=== PATIENT | female | born 1950 | race Caucasian/White ===

== ENCOUNTER → 2024-08-31 | Outpatient (CLI) | payer MEDICARE, OTHER, SELFPAY ==
[2024-08-31 10:52] LABS: Basophils % (Auto) 1 % (0-2.5); Eosinophils # (Auto) 0.1 Thou/mm3 (0.0-0.5); Eosinophils % (Auto) 2 % (0-10); Hematocrit 44.9 % (36.0-46.0); Hemoglobin 15.4 g/dL (12.0-16.0); Immature Granulocytes % (Auto) 0 % (0-0); Immature Granulocytes Auto 0.01 Thou/mm3 (0.00-0.00); Lymphocytes # (Auto) 1.5 Thou/mm3 (1.0-4.8); Lymphocytes % (Auto) 34 % (10-50); Mean Corpuscular HGB Conc 34.3 g/dl (31.0-37.0); Mean Corpuscular Volume 93 fL (80-100); Monocytes # (Auto) 0.5 Thou/mm3 (0.0-0.8); Monocytes % (Auto) 11 % (0-12); Neutrophils # (Auto) 2.2 Thou/mm3 (1.8-7.7); Neutrophils % (Auto) 52 % (37-80); Nucleated Red Blood Cell % 0 /100 WBC (0); Platelet Count 218 Thou/mm3 (140-440); RDW Standard Deviation 43.6 fL (36.4-46.3); Red Blood Count 4.81 Miln/mm3 (4.00-5.20); White Blood Count 4.3 Thou/mm3 (3.6-11.0)
[2024-08-31 11:32] LABS: Alanine Aminotransferase 22 U/L (10-49); Albumin, Serum 4.1 gm/dL (3.4-4.8); Albumin/Globulin Ratio 1.8 (1.2-2.2); Alkaline Phosphatase 66 U/L (46-116); Anion Gap 8 (7-16); Aspartate Amino Transferase 22 U/L (0-34); BUN/Creatinine Ratio 25 Ratio (12-20); Bilirubin,Total 0.4 mg/dL (0.3-1.2); Blood Urea Nitrogen 20 mg/dL (9-23); Carbon Dioxide 27.2 mMol/L (20.0-31.0); Cardiac Risk Estimate 4.9 RATIO (3.7-5.6); Chloride 108 mMol/L (98-107); Cholesterol 243 mg/dL (132-200); Creatinine (Component) 0.8 mg/dL (0.6-1.3); Free T4 (Free Thyroxine) 1.28 ng/dL (0.89-1.76); Globulin 2.3 gm/dL (2.3-3.5); Glucose 92 mg/dL (74-106); HDL Cholesterol 50 mg/dL (40-60); LDL Cholesterol,Calculated 170 mg/dL (0-130); Osmolality,Calculated 287 (275-295); Potassium 4.3 mMol/L (3.4-5.1); Sodium 143 mMol/L (136-145); Thyroid Stimulating Hormone 3.51 uIU/mL (0.55-4.78); Total Protein 6.4 gm/dL (5.7-8.2); Triglycerides 113 mg/dL (30-150); eGFR > 60 See Note
[2024-08-31 11:58] LABS: Glucose Estimated Average 97 mg/dL (80-131)
[2024-08-31 14:52] LABS: Cocci Serology, IgM Negative (Negative)
[2024-09-01 14:29] LABS: Cocci Serology, IgG Negative (Negative)
== END | disposition home or self-care (01) ==
PROVIDERS: PCP Physician Assistant; Referring Provider Physician Assistant; Visit Provider Physician Assistant
DX: E66.3 Overweight (principal); R73.9 Hyperglycemia, unspecified; Z83.3 Family history of diabetes mellitus; R53.81 Other malaise; R53.83 Other fatigue; Z86.19 Personal history of other infectious and parasitic diseases; Z68.27 Body mass index [BMI] 27.0-27.9, adult
CPT/HCPCS: 36415; 80053; 80061; 83036; 84439; 84443; 85025; 86331; 86635

== ENCOUNTER → 2024-09-01 | Outpatient (CLI) | payer MEDICARE, OTHER, SELFPAY ==
[2024-09-01 14:11] LABS: OBS Card Expiration Date 2026/09; OBS Card Lot # 23001; OBS Performed By LAB; OBS QC OK? Yes
[2024-09-01 16:50] LABS: OBS Developer Lot # 23003; Occult Blood, Stool Negative (Negative); Occult Blood, Stool #2 Negative (Negative); Occult Blood, Stool #3 Negative (Negative)
== END | disposition home or self-care (01) ==
LOC: SLDO 14:07
PROVIDERS: PCP Physician Assistant; Referring Provider Physician Assistant; Visit Provider Physician Assistant
DX: Z12.11 Encounter for screening for malignant neoplasm of colon (principal)
CPT/HCPCS: 82270

== ENCOUNTER 2025-03-02 12:34 | Inpatient (IN) | payer MEDICARE, OTHER, SELFPAY ==
[2025-03-02] VITALS (21 sets, daily range): BP systolic 105–134; BP diastolic 46–78; PULSE 69–88; RESP 12–87; TEMP 36.6–36.7; O2SAT 95–100; BMI 28.0
--- NOTE | 2025-03-02 12:36 | EKG_ITS ---
[facility], [place] Test Date: 2025-03-02 Pat Name: JENNY WRIGHT Department: Room: - Gender: Female Equipment Tester: : 1950 Requested By: Rubio Kumar (TYRON) Order Number: [id number] Reading MD: Rubio Kumar (TIRE INSTALLER) Measurements Intervals [place] Rate: 82 P: 55 CO: 154 QRS: 21 QRSD: 129 T: 98 QT: 391 QTc: 459 Interpretive Statements SINUS RHYTHM LEFT BUNDLE BRANCH BLOCK [120+ ms QRS DURATION, 80+ ms Q/S IN V1/V2, 85+ ms R IN I/aVL/V5/V6] No previous ECG available for comparison /store/S0/[id number].pdf
--- NOTE | 2025-03-02 13:00 | XR_ITS ---
Examination: PA lateral chest 2 views TECHNIQUE: Upright PA lateral chest 2 views Date and time: March 02, 2025 1327 hours Comparison April 06, 2014 INDICATIONS: Chest pain today FINDINGS: Normal heart size. No lobar pneumonia or pulmonary edema Prominent osteopenia IMPRESSION: No pneumonia or pulmonary edema
--- NOTE | 2025-03-02 13:01 | PD.EDRME ---
Rapid Medical Screening Exam RME Arrival date/time: 03/02/25 12:34 74-year-old female presents to the emergency department today for complaint of a 2-day history of chest pain and shortness of breath Chief Complaint: Chest Pain Vital signs: Vital Signs Temperature 98.0 F 03/02/25 12:45 Pulse Rate 88 03/02/25 12:45 Respiratory Rate 87 H 03/02/25 12:45 Blood Pressure 133/74 H 03/02/25 12:45 Pulse Oximetry (%) 96 03/02/25 12:45 Oxygen Delivery Method Room Air 03/02/25 12:45
[2025-03-02 13:45] LABS: Basophils # (Auto) 0.1 Thou/mm3 (0.0-0.2); Basophils % (Auto) 1 % (0-2.5); Eosinophils # (Auto) 0.3 Thou/mm3 (0.0-0.5); Eosinophils % (Auto) 4 % (0-10); Hematocrit 38.3 % (36.0-46.0); Hemoglobin 12.8 g/dL (12.0-16.0); Immature Granulocytes % (Auto) 0 % (0-0); Immature Granulocytes Auto 0.02 Thou/mm3 (0.00-0.00); Lymphocytes % (Auto) 27 % (10-50); Mean Corpuscular HGB Conc 33.4 g/dl (31.0-37.0); Mean Corpuscular Hemoglobin 31.5 pg (25.0-35.0); Mean Corpuscular Volume 94 fL (80-100); Monocytes # (Auto) 0.5 Thou/mm3 (0.0-0.8); Monocytes % (Auto) 6 % (0-12); Neutrophils # (Auto) 4.6 Thou/mm3 (1.8-7.7); Neutrophils % (Auto) 61 % (37-80); Nucleated Red Blood Cell % 0 /100 WBC (0); Platelet Count 251 Thou/mm3 (140-440); RDW Standard Deviation 44.2 fL (36.4-46.3); Red Blood Count 4.06 Miln/mm3 (4.00-5.20); White Blood Count 7.4 Thou/mm3 (3.6-11.0)
[2025-03-02 14:05] LABS: B-Type Natriuretic Peptide 182 pg/mL (0-100)
[2025-03-02 14:08] LABS: Alanine Aminotransferase 31 U/L (10-49); Albumin, Serum 3.6 gm/dL (3.4-4.8); Albumin/Globulin Ratio 1.6 (1.2-2.2); Alkaline Phosphatase 54 U/L (46-116); Anion Gap 14 (7-16); Aspartate Amino Transferase 23 U/L (0-34); BUN/Creatinine Ratio 19 Ratio (12-20); Bilirubin,Total 0.4 mg/dL (0.3-1.2); Blood Urea Nitrogen 17 mg/dL (9-23); Calcium 7.9 mg/dL (8.3-10.6); Calcium (Corrected) 8.2 mg/dL (8.5-10.1); Carbon Dioxide 22.5 mMol/L (20.0-31.0); Chloride 108 mMol/L (98-107); Creatinine (Component) 0.9 mg/dL (0.6-1.3); Globulin 2.3 gm/dL (2.3-3.5); Glucose 130 mg/dL (74-106); Osmolality,Calculated 290 (275-295); Sodium 144 mMol/L (136-145); Total Protein 5.9 gm/dL (5.7-8.2); Troponin I 0.023 ng/mL (0.0-0.045); eGFR > 60 See Note
--- NOTE | 2025-03-02 16:30 | XR_ITS ---
Examination: CTA chest with intravenous contrast 2-D reconstructions 3-D reconstructions, vascular Date and time of exam: March 02, 2025 1752 hours INDICATIONS: Onset chest pain shortness of breath beginning 4 days ago, clinical diagnosis pulmonary emboli CTDI: vol (mGy) 9.02 DLP: (mGycm) 306 Technique: Multiple axial sections of the thorax have been obtained. 3 mm slice thickness, from below the hemidiaphragms to above the apices of the lungs. Mediastinal and lung density settings have been obtained. 2-D sagittal and coronal reconstructions. 3-D angiographic renderings, 3-D volume renderings, 3D post processing, vascular maximum intensity projections obtained. Contrast administered is 100 cc Isovue 370. Low dose protocols were performed. One or more of the following dose reduction techniques were used; automated exposure control, adjustment of the mA and/or KV according to patient size, use of iterative reconstruction technique. Findings: No thoracic aortic aneurysm dilatation or dissection No pulmonary artery emboli Mild enlargement cardiac contour 6 mm pulmonary nodule left upper lobe image 25 4 mm pulmonary nodule right lower lobe image 249 Vascular congestion with mild pulmonary edema at the lung bases Minimal bilateral pleural disease Mild right hilar lymphadenopathy No visualized liver or splenic lesion Gallbladder wall is thickened although the gallbladder is contracted Spleen is not enlarged No pancreatic mass Nodular thickening left adrenal gland IMPRESSION: Negative for pulmonary artery emboli Noncalcified pulmonary nodules as above, recommend 6 month follow-up CT chest without contrast to document stability of these pulmonary nodules Mild CHF Recommend hepatobiliary sonography follow-up to exclude thickening of the gallbladder wall
--- NOTE | 2025-03-02 16:30 | XR_ITS ---
Examination: Duplex scan of the lower extremity, unilateral left Date and time of exam: Hours INDICATIONS: Left calf redness and warmth 5 days after working in the heart Technique: Duplex scan of the extremity veins using B-mode/grayscale imaging and Doppler spectral analysis and color flow Attention is directed to internal echogenicity, compression and augmentation involving these veins, color flow assessment, spectral analysis Findings: Major deep venous structures in the extremity demonstrate normal course and caliber. There is no evidence of deep vein thrombosis. Normal color flow and spectral analysis 4.2 cm popliteal cyst Impression: Negative for DVT..
--- NOTE | 2025-03-02 16:32 | PD.EDSOB ---
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 presents to the emergency room with a chief complaint of shortness of breath, sternal chest tightness, and lower extremity swelling x 4 days Mode of arrival: ambulatory Limitations: no limitations RME / HPI RME / HPI Narrative: 03/02/25 12:34 74-year-old female presents to the emergency department today for complaint of a 2-day history of chest pain and shortness of breath Related Data Allergies Allergy/AdvReac Type Severity Reaction Status Date / Time Penicillins Allergy Verified 03/02/25 12:38 Sulfa (Sulfonamide Allergy Verified 03/02/25 12:38 Antibiotics) Review of Systems Review of Systems Systems Reviewed: All systems reviewed, normal except as documented Constitutional Constitutional: Reports system reviewed and no additional complaints, except as documented, Denies fatigue, Denies fever(s), Denies headache(s) and Denies weakness Eyes Eyes: Reports system reviewed and no additional complaints, except as documented, Denies blurry vision and Denies change in vision ENT Ears, Nose, Mouth, and Throat: Reports system reviewed and no additional complaints, except as documented, Denies otalgia, Denies headache(s), Denies nasal congestion, Denies throat swelling and Denies vertigo Cardiovascular Cardiovascular: Reports system reviewed and no additional complaints, except as documented, Denies chest pain, Reports dyspnea and Reports dyspnea on exertion Respiratory Respiratory: Reports system reviewed and no additional complaints, except as documented, Denies chest congestion, Reports cough, Reports dyspnea, Reports dyspnea on exertion and Denies wheezing Gastrointestinal Gastrointestinal: Reports system reviewed and no additional complaints, except as documented, Denies abdominal pain, Denies cramping, Denies nausea and Denies vomiting Genitourinary Genitourinary: Reports system reviewed and no additional complaints, except as documented Musculoskeletal Musculoskeletal: Reports system reviewed and no additional complaints, except as documented and Denies back pain Integumentary/Breasts Skin/Breast: Reports system reviewed and no additional complaints, except as documented and Denies wounds Neurologic Neurologic: Reports system reviewed and no additional complaints, except as documented, Denies confusion, Denies headache(s), Denies lack of coordination, Denies vertigo and Denies weakness Psychiatric Psychiatric: Reports system reviewed and no additional complaints, except as documented, Denies anxiety, Denies confusion, Denies depression, Denies paranoia, Denies suicidal ideation and Denies tactile hallucinations Endocrine Endocrine: Reports system reviewed and no additional complaints, except as documented and Denies fatigue Hematologic/Lymphatic Hematologic/Lymphatic: Reports system reviewed and no additional complaints, except as documented and Denies lymphadenopathy Allergic/Immunologic Allergic/Immunologic: Reports system reviewed and no additional complaints, except as documented, Denies throat swelling, Denies urticaria and Denies wheezing ED Exam General Limitations: Present no limitations General appearance: Present alert and in no apparent distress Head Head exam: Present atraumatic Eye Eye exam: Present normal appearance, PERRL and EOMI ENT ENT exam: Present normal exam, normal oropharynx and mucous membranes moist Neck Neck exam: Present normal inspection, full ROM and trachea midline Expanded Neck Exam Neck exam focused ED: Present JVD; Absent midline tenderness, paraspinal tenderness, tenderness (other), tracheal deviation or anterior neck swelling Chest Chest inspection: Present normal inspection and symmetric chest wall rise Respiratory Respiratory exam: Present normal lung sounds bilaterally and respiratory distress; Absent wheezes, stridor, accessory muscle use or prolonged expiratory phase Cardiovascular Cardiovascular exam: Present regular rate, normal rhythm, irregular rhythm, normal heart sounds, JVD, +S1 and +S2; Absent bradycardia, tachycardia, systolic murmur, diastolic murmur, rubs, gallop or clicks Abdominal Exam Abdominal exam: Present soft and normal bowel sounds; Absent tenderness Extremities Exam Extremities exam: Present normal inspection and full ROM Expanded Lower Extremity Exam Lower leg exam: Present swelling Ankle exam: Present swelling Back Exam Back exam: Present normal inspection and full ROM Neurological Exam Neurological exam: Present alert, oriented X3 and CN II-XII intact Psychiatric Psychiatric exam: Present normal affect and normal mood Skin Skin exam: Present warm, dry, intact and normal color Course Quality Measures none Orders Category Date Time Status COVID-19 Screening Questionnaire NOW Care 03/02/25 19:[address] Screening NOW Care 03/02/25 16:[address] Screening X1 Care 03/02/25 16:30 Active Decision to Admit X1 Care 03/02/25 19:31 Active EKG (ED ONLY) *Do not use* NOW Care 03/02/25 12:36 Completed Consult to Cardiology Stat Cons 03/02/25 19:[address] angio chest Stat Exams 03/02/25 16:30 Completed EKG (ED Only) Stat Exams 03/02/25 12:36 Draft US venous doppler LE LT Stat Exams 03/02/25 16:30 Completed XR chest 2V Stat Exams 03/02/25 13:00 Completed BNP [B-Type Natriuretic Peptide] Stat Lab 03/02/25 13:11 Completed CBC Stat Lab 03/02/25 13:11 Completed Comprehensive Metabolic Panel Stat Lab 03/02/25 13:11 Completed Mag [Magnesium] Stat Lab 03/02/25 13:11 Completed Troponin I Stat Lab 03/02/25 13:11 Completed Troponin I Stat Lab 03/02/25 16:40 Completed Vital Signs Vital signs: Vital Signs Temperature 98.0 F 03/02/25 12:45 Pulse Rate 88 03/02/25 12:45 Respiratory Rate 87 H 03/02/25 12:45 Blood Pressure 133/74 H 03/02/25 12:45 Pulse Oximetry (%) 96 03/02/25 12:45 Oxygen Delivery Method Room Air 03/02/25 12:45 O2 saturation 96% within normal limits Shortness of Breath / Dyspnea MDM Narrative MDM Narrative:: 74-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 The patient is also short of breath when speaking to her. Her lower extremities have some +1 edema that is more prominent on the left side. The patient also has some JVD. The patient has strong regular rhythm S1 and S2 noted. An ultrasound Doppler of the left lower extremity was completed and was negative for DVT. I spoke to my attending physician Dr Giraldo and recommended to do a CT angiogram. CT angiogram shows some pulmonary nodules as well as some mild CHF. The CHF is new onset. An EKG was completed and showed normal sinus rhythm with some left bundle branch. There was no previous EKG to compare this to. Both troponins were negative. I spoke to Dr. Desir the research manufacturing operator on-call and his recommendation was to admit the patient for new onset CHF and he will see her tomorrow in the morning. Patient was discharged and educated to follow-up with primary care provider in the next 24 to 48 hours and return to the emergency room for any evidence of worsening signs or symptoms Patient data External records reviewed:: [facility] previous records Clinical information provided by:: patient Social determinants that could affect healthcare access:: none Patient has the following chronic illnesses:: CHF How is presenting disease/condition affected by chronic disease/condition?: exacerbated by Evaluation data The following diagnostics were reviewed and interpreted by me:: lab results and radiology exam(s) Lab and/or radiology exams considered but not ordered:: N/A Interpretation Summary: CT angio-Findings: No thoracic aortic aneurysm dilatation or dissection No pulmonary artery emboli Mild enlargement cardiac contour 6 mm pulmonary nodule left upper lobe image 25 4 mm pulmonary nodule right lower lobe image 249 Vascular congestion with mild pulmonary edema at the lung bases Minimal bilateral pleural disease Mild right hilar lymphadenopathy No visualized liver or splenic lesion Gallbladder wall is thickened although the gallbladder is contracted Spleen is not enlarged No pancreatic mass Nodular thickening left adrenal gland IMPRESSION: Negative for pulmonary artery emboli Noncalcified pulmonary nodules as above, recommend 6 month follow-up CT chest without contrast to document stability of these pulmonary nodules Mild CHF Recommend hepatobiliary sonography follow-up to exclude thickening of the gallbladder wall Medications / Prescriptions Medications or Prescriptions considered but not ordered:: No medication given Medication administrations:: No medication given Consultations Consultation(s) initiated? (list below): Yes Consultation #1 (Physician, Specialty, Details): Dr. Desir research manufacturing operator on-call Time: 19:00 Diagnosis Shortness of Breath Differential Diagnosis: congestive heart failure, community acquired pneumonia, asthma with exacerbation and pulmonary embolism Most likely diagnosis given after review of the tests above:: Congestive heart failure Admission Indicated Admission indicated?: indicated Explain why admission is indicated or not indicated:: The patient will be admitted for new onset CHF and will be seen by the research manufacturing operator tomorrow morning Admission Request Was there a request for admission?: Yes Admission Attestation Admission request attestation: Discussed case with [] from Hospitalist service regarding admission. Discussed patients ED course, exam findings, labs, and radiology results. The Hospitalist [agrees,declines] to accept the patient for admission. Disposition Plan Disposition Plan: Admit Discharge Plan Plan Patient Disposition: Admit Acute Care w/in Hospital Discharge Disposition comment: Stable Prescriptions/Referrals Referrals: Althea Wall PA-C [Primary Care Provider] - In 1 week Problem List Clinical Impression: New onset of congestive heart failure, Chest pain, Shortness of breath Patient/Caregiver Discharge Instructions Print Language: Colombian Stand Alone Forms: [facility] Award Info., Patient Portal Info Letter
[2025-03-02 17:05] LABS: Troponin I 0.026 ng/mL (0.0-0.045)
--- NOTE | 2025-03-02 20:12 | ESHP_ITS ---
Documentation for date of: 03/02/25 HPI History of Present Illness Chief complaint: Chest pain History of present illness: 74-year-old female with past medical history of hypoglycemia, hypotension who presents to the ED due to chest pain. Patient states that the onset of symptoms was on (02/25/2025), described as nonradiating chest tightness rated 5 out of 10 that comes and goes. Chest pain does not get better with changes in position. Patient also endorses palpitations with the chest pain that slightly improves when taking deep breaths, as well as shortness of breath with exertion and bilateral leg swelling all the symptoms started on . She also endorsed some cold sweats on Saturday as well as shortness of breath. ED spoke with Cardiology and recommended admission. Initially there was concern for pulmonary embolism however workup including chest CTA came back negative. At this time patient denies any headaches, dizziness, nausea, vomiting, abdominal pain, diarrhea, orthopnea, PND but does endorse mild chest pain. ED course: ED vitals: BP 133/74, HR 88, saturating 96% on room air ED labs: CBC unremarkable, glucose 130, corrected calcium 8.2, BNP 182, troponins negative x 2 PMHx: As above SX Hx: Left knee surgery, ganglion cyst, right ovarian cyst, bilateral meniscal tear Social Hx: Remote THC use when she was 19, denies cigarette use, denies illicit substances Review of Systems Review of Systems Systems Reviewed: All systems reviewed, normal except as documented Narrative Review of Systems: All 12 systems reviewed and found normal unless otherwise stated in the HPI. Exam Vital Signs Temp Pulse Resp BP Pulse Ox O2 Del Method 98.0 F 74 18 105/46 L 99 Room Air 03/02/25 18:34 03/02/25 18:34 03/02/25 18:34 03/02/25 18:34 03/02/25 18:34 03/02/25 18:34 Narrative Exam Physical Exam GENERAL: NAD, AAOx3 HEENT: Moist mucosa. Eyes open, symmetrical, & clear CARDIO: Heart RRR, no obvious murmurs PULM: No noted coughing/dyspnea CTA B/L, no R/W/R GI: Abdomen soft, nondistended, no pain on palpation. BSx4 SKIN/MSK/EXT: Trace bilateral lower extremity edema, no pain on palpation. Pedal pulses present B/L NEURO: AAOx3, no focal neuro deficits, able to move all 4 extremities Results: Labs 03/02/25 13:11 03/02/25 13:11 Labs: Short CBC 03/02/25 Range/Units 13:11 WBC 7.4 (3.6-11.0) Thou/mm3 Hgb 12.8 (12.0-16.0) g/dL Hct 38.3 (36.0-46.0) % Plt Count 251 (140-440) Thou/mm3 BMP 03/02/25 13:11 Sodium 144 Potassium 4.0 Chloride 108 H Carbon Dioxide 22.5 BUN 17 Creatinine 0.9 Glucose 130 H Calcium 7.9 L Cardiac Enzymes 03/02/25 03/02/25 Range/Units 13:11 16:40 Troponin I 0.023 0.026 (0.0-0.045) ng/mL Liver Function 03/02/25 Range/Units 13:11 Total Bilirubin 0.4 (0.3-1.2) mg/dL AST 23 (0-34) U/L ALT 31 (10-49) U/L Alkaline Phosphatase 54 (46-116) U/L Albumin 3.6 (3.4-4.8) gm/dL Quality Measures Quality Measures none Advance care planning discussed with:: patient Medications Home Medications and Allergies Home Medications ?Medication ?Instructions ?Recorded ?Confirmed ?Type No Known Home Medications 03/02/2512/22 History Allergies Allergy/AdvReac Type Severity Reaction Status Date / Time Penicillins Allergy Verified 03/02/25 12:38 Sulfa (Sulfonamide Allergy Verified 03/02/25 12:38 Antibiotics) Visit Medications Acetaminophen (Acetaminophen 325 Mg Tablet) 650 mg PO Q6H PRN PRN Reason: Fever >100 Stop: 04/01/25 20:03 Acetaminophen (Acetaminophen 500 Mg Tablet) 1,000 mg PO Q6H PRN PRN Reason: PAIN SCALE 1-3 (mild Stop: 04/01/25 20:03 Aspirin (Aspirin Ec 81 Mg Tabec) 81 mg PO QDAY ROSE Stop: 04/01/25 20:14 Furosemide (Furosemide Inj 10 Mg/Ml Vial 2 Ml) 20 mg IVP QDAY ROSE Stop: 04/02/25 08:59 Heparin Sodium (Porcine) (Heparin Sod Inj 5000 Unit/Ml Vial) 5,000 unit SC Q8HR ROSE Stop: 03/16/25 21:59 Ipratropium [place] (Ipratropium Rt 0.5 Mg/ 2.5 Ml Nebu) mg INH Q2HR PRN PRN Reason: SHORTNESS OF BREATH OR WHEEZE Stop: 04/01/25 20:03 Morphine Sulfate (Morphine Sulf Inj 10 Mg/Ml Vial) 2 mg IVP Q4H PRN PRN Reason: PAIN SCALE 7-10 (Severe Stop: 03/07/25 20:03 Ondansetron HCl (Ondansetron Inj 2 Mg/Ml Inj 2 Ml) 4 mg IVP Q6H PRN; Protocol PRN Reason: NAUSEA OR VOMITING Stop: 04/01/25 20:03 Assessment & Plan Plan 74-year-old female with past medical history of hypoglycemia, hypotension who presents to the ED due to chest pain. Admitted for ACS rule out #Chest pain #Palpitations #Pulmonary embolism?ruled out Patient states that the onset of symptoms was on (02/25/2025), described as nonradiating chest tightness rated 5 out of 10 that comes and goes. Chest pain does not get better with changes in position. Patient also endorses palpitations with the chest pain that slightly improves when taking deep breaths, as well as shortness of breath with exertion and bilateral leg swelling all the symptoms started on . Troponins negative x 2, BNP 182 There was concern for PE, however ultrasound of lower extremities and chest CTA negative for DVT and PE ANOOP score 1 ? Aspirin 81 mg ? Echo ordered ? Lasix 20 Mg daily ? Ipratropium for shortness of breath as needed ? Cardiology consulted, appreciate recs ? N.p.o. after midnight ? Follow-up TSH ? Follow-up lipid panel #History of hypoglycemia ? Follow fingersticks monitor for symptoms #History of hypotension Currently normotensive with MAP above 65 ? Monitor Health Maintenance: Disposition: Telemetry, ACS rule out Fluids: None Feeding: N.p.o. after midnight Thrombo prophylaxis: Heparin Gastric Ulcer prophylaxis: None CODE STATUS: Full code Case discussed with my attending Dr. Khari Paul MD PGY-1 Attending Provider Attestation/Addendum Face to face evaluation was performed by me. I have personally seen and examined the patient. I discussed the assessment and plan with the entire medicine team. I reviewed available medical records, imaging studies, laboratory results. I agree with the above subjective data, objective findings, assessment and plan except as corrected by me or noted below Chest pain, pressure like sensation, atypical Palpitations Abnormal EKG with no specific St-T changes HLD Hx of hypotensino Hx of hypoglycemic episodes per patient - Admit for CP workup- Echo- Cardiology consult might need further risk stratification- Stress test vs LHC- defer to Cardiology - Crissy needs diagnostic cardiac sonographer after DC to rule out arrhythmias (mainly tachy considering her history) More than > 30 minutes spent on the encounter
[2025-03-02] MEDS: ASPIRIN EC 81 MG TABEC PO (21:08)
[2025-03-02] MEDS: HEPARIN SOD INJ 5000 UNIT/ML VIAL SC (22:53)
[2025-03-03] VITALS (9 sets, daily range): BP systolic 94–132; BP diastolic 52–62; PULSE 67–85; RESP 13–97; TEMP 36.1–37.1; O2SAT 94–98
[2025-03-03 05:34] LABS: Basophils # (Auto) 0.1 Thou/mm3 (0.0-0.2); Basophils % (Auto) 1 % (0-2.5); Eosinophils # (Auto) 0.3 Thou/mm3 (0.0-0.5); Eosinophils % (Auto) 5 % (0-10); Hematocrit 35.3 % (36.0-46.0); Hemoglobin 11.9 g/dL (12.0-16.0); Immature Granulocytes % (Auto) 0 % (0-0); Immature Granulocytes Auto 0.01 Thou/mm3 (0.00-0.00); Lymphocytes # (Auto) 1.9 Thou/mm3 (1.0-4.8); Lymphocytes % (Auto) 31 % (10-50); Mean Corpuscular HGB Conc 33.7 g/dl (31.0-37.0); Mean Corpuscular Hemoglobin 31.7 pg (25.0-35.0); Mean Corpuscular Volume 94 fL (80-100); Monocytes # (Auto) 0.5 Thou/mm3 (0.0-0.8); Monocytes % (Auto) 8 % (0-12); Neutrophils # (Auto) 3.5 Thou/mm3 (1.8-7.7); Neutrophils % (Auto) 55 % (37-80); Nucleated Red Blood Cell % 0 /100 WBC (0); Platelet Count 231 Thou/mm3 (140-440); RDW Standard Deviation 43.8 fL (36.4-46.3); Red Blood Count 3.75 Miln/mm3 (4.00-5.20); White Blood Count 6.3 Thou/mm3 (3.6-11.0)
[2025-03-03] MEDS: HEPARIN SOD INJ 5000 UNIT/ML VIAL SC (05:59)
[2025-03-03 06:36] LABS: Alanine Aminotransferase 25 U/L (10-49); Albumin, Serum 3.3 gm/dL (3.4-4.8); Albumin/Globulin Ratio 1.6 (1.2-2.2); Alkaline Phosphatase 47 U/L (46-116); Anion Gap 13 (7-16); Aspartate Amino Transferase 18 U/L (0-34); BUN/Creatinine Ratio 21 Ratio (12-20); Bilirubin,Total 0.4 mg/dL (0.3-1.2); Blood Urea Nitrogen 17 mg/dL (9-23); Calcium 7.9 mg/dL (8.3-10.6); Calcium (Corrected) 8.5 mg/dL (8.5-10.1); Carbon Dioxide 24.3 mMol/L (20.0-31.0); Cardiac Risk Estimate 6.7 RATIO (3.7-5.6); Chloride 110 mMol/L (98-107); Cholesterol 194 mg/dL (132-200); Creatinine (Component) 0.8 mg/dL (0.6-1.3); Estimated Creatinine Clearance 67.7 mL/min (>60); Globulin 2.1 gm/dL (2.3-3.5); Glucose 98 mg/dL (74-106); HDL Cholesterol 29 mg/dL (40-60); LDL Cholesterol,Calculated 136 mg/dL (0-130); Magnesium 2.1 mg/dL (1.6-2.6); Osmolality,Calculated 293 (275-295); Phosphorous 3.9 mg/dL (2.4-5.1); Sodium 147 mMol/L (136-145); Thyroid Stimulating Hormone 3.55 uIU/mL (0.55-4.78); Total Protein 5.4 gm/dL (5.7-8.2); Triglycerides 143 mg/dL (30-150); eGFR > 60 See Note
[2025-03-03] MEDS: FUROSEMIDE INJ 10 MG/ML VIAL 2 ML 20 MG IVP (08:04)
[2025-03-03] MEDS: ASPIRIN EC 81 MG TABEC PO (08:05)
--- NOTE | 2025-03-03 10:30 | PC.SS ---
Initial assessment: patient is a 74-year old female admitted for chest pain. Patient alert and oriented to self, place and situation. Patient able to confirm demographic information. Patient identifed her daughter Princess as her emergency contact. Patient reports being independent with ADL's. Patient denies use of home DME. Patient informs her PCP is Althea Wall. Patient informs her plan is to return home upon discharge. Patient did not identify any current needs before discharge. Patient was provided with community resources handout. D/c plan: Home Next of kin: daughterPrincess
--- NOTE | 2025-03-03 10:34 | PC.SS ---
SS update: patient verbalized being upset and informed she wanted a medical update. Patient informed she would leave today AMA if continued wait. Updated bedside RN-Althea to make aware.
--- NOTE | 2025-03-03 14:29 | PC.SS ---
Rounding note: plan is to d/c the patient home today.
--- NOTE | 2025-03-03 15:38 | PD.RESDS ---
Planned Discharge Date 03/03/25 DS: Providers Provider Date of admission: 03/02/25 20:04 Primary care physician: Althea Wall PA-C Admitting Provider: Marco A Lucia MD Attending Provider on Admission: Juan Carlos Gordon MD Consults: 03/02/25 19:59 Consult to Cardiology Stat Comment: Consulting Provider: Jason Desir 03/02/25 23:10 [facility] Referral - Transportation Routine Comment: Positive screening for transportation needs. Attending Provider on DC: Leora Amos MD Discharging Provider: Leora Amos MD DS: Diagnosis Problem List Completed Was Problem List Reviewed/Reconciled?: Yes Hospital Course Hospital Course Hospital course: Reason for hospitalization: Chest pain 74-year-old female with past medical history of hypoglycemia, hypotension who presented to the ED due to chest pain for about 1 week, onset of symptoms was on (02/25/2025), described as nonradiating chest tightness rated 5 out of 10 that comes and goes, does not get better with changes in position. Associated with palpitations with the chest pain that slightly improves when taking deep breaths, as well as shortness of breath with exertion and bilateral leg swelling. She also endorsed some cold sweats on Saturday as well as shortness of breath. ED consulted Cardiology and recommended admission. Initially there was concern for pulmonary embolism however workup including chest CTA came back negative. Workup included troponins negative x 2, BNP 182. ANOOP score 1. Echo showed EF of 55 to 60%. Grade 1 diastolic dysfunction. Patient was recommended to follow up in Cardiology clinic for outpatient stress testing and to start aspirin 81 mg daily. She was cleared for discharge by Cardiology with understanding of instructions. Discharge Recommendations: -Follow up with PCP within 1 week of discharge -Follow up with Cardiology within 1 week of discharge -Start taking aspirin 81 mg daily -Return to the ED or call EMS if symptoms return and/or worsen. Hospital Diagnoses: #Atypical chest pain #Palpitations #Pulmonary embolism?ruled out #History of pulmonary nodules on imaging and [place] Fever in remote past #History of hypoglycemia #History of hypotension Patient plan of care was discussed with the attending physician, Dr. Gordon. Leora Amos, PGY-2 Time Spent with Patient Time attestation: Total time spent providing and/or coordinating discharge services: Time spent: Greater than 30 minutes Exam Vital Signs Temp Pulse Resp BP Pulse Ox O2 Del Method 97.1 F 76 17 94/52 L 95 Room Air 03/03/25 12:00 03/03/25 12:00 03/03/25 12:00 03/03/25 12:00 03/03/25 12:03/03/25 12:00 Narrative Exam Physical Exam GENERAL: NAD, AAOx3 HEENT: Moist mucosa. Eyes open, symmetrical, & clear CARDIO: Heart RRR, no obvious murmurs PULM: No noted coughing/dyspnea CTA B/L, no R/W/R GI: Abdomen soft, nondistended, no pain on palpation. BSx4 SKIN/MSK/EXT: Trace bilateral lower extremity edema, no pain on palpation. Pedal pulses present B/L NEURO: AAOx3, no focal neuro deficits, able to move all 4 extremities Discharge Plan Plan Patient Disposition: HOME (Self Care) Patient condition on transfer: Stable Care Plan Goals: Discharge Recommendations: -Follow up with PCP within 1 week of discharge -Follow up with Cardiology Dr. Desir in clinic -Now youre taking aspirin daily 81 mg -Return to the ED or call EMS if symptoms return and/or worsen. Prescriptions/Referrals Prescriptions/Med Rec: New aspirin [Ecotrin Low Strength] 81 mg Tablet,Delayed Release (Dr/Ec) 81 mg PO QDAY 30 Days Qty: 30 0RF Referrals: Jason Desir MD [Physician] - Althea Wall PA-C [Primary Care Provider] - Patient/Caregiver Discharge Instructions Education Materials: What Is Heart Failure, Low-Salt Choices, Heart Failure: Tracking Your Weight, Heart Failure Dc Print Language: Slovenian Stand Alone Forms: Viola Award Info., Patient Portal Info Letter Discharge Order Discharge Orders: Discharge (Routine); Ordered 03/03/25 Ordered By: Claudia Espinosa Quality Discharge Quality Measures VTE prophylaxis Attestestation MD Attestation I attest that I was physically present for the evaluation, physical examination, lab and imaging review of the patient with the residents. I discussed the case with the residents and agree with the findings and plans of care as documented above. Juan Carlos Gordon MD
--- NOTE | 2025-03-03 16:13 | PD.RESCONSUL ---
HPI Data of Consult Requesting Physician: Juan Carlos Gordon MD Admitting Provider: Marco A Lucia MD Attending Provider: Juan Carlos Gordon MD Primary Care Provider: Althea Wall PA-C Consult Narrative History of present illness: CC: chest pain Patient is a 74 years old female with a past medical history of hyperlipidemia, noncompliant, who presented with a chief complain chest pain and shortness of breath. Patient stated chest pain started upper back and radiated towards chest and sternal region spreading bilaterally. Described pain as tightness as if she was wearing a corset. Pain is 5 out of 10. Does not radiate to jaw or upper extremities. Described pain as tightness that lasted 2 to 3 minutes. Patient stated shortness of breath and diaphoresis occurring at the same time as chest pain. Palpitations present as well. Similar episode 30 years ago that required a stress test with unremarkable findings. Patient recently started on atorvastatin for hyperlipidemia as outpatient, patient has been noncompliant with medication. Patient prefers to take vitamins and herbal supplements. Patient denied any past medical history of DE or cardiac surgery. Patient denied any sick contacts or flulike symptoms. Denied pulmonary disease. Denied emesis, or hematochezia, or melena. Patient denied past medical history of hypertension or diabetes mellitus. ER course Vitals: BP 133/74, HR 88, respiratory rate 23, temperature 98.0 F, SpO2 96% RA CMP: Sodium 144, K4, chloride 108, bicarb 22.5, BUN 17, creatinine 0.9, GFR greater than 60, glucose 130, WBC 7.4, Hgb 12.8, Hct 38.3 Troponin: 0.023, 0.026, EKG sinus & Left Bundle Branch Block BNP 182, chest x-ray (03/02/2025) no pneumonia or pulmonary edema CTA chest (03/02/2025): Negative for PE. Mild CHF with mild enlargement of cardiac contour. Noncalcified pulmonary nodules as above, recommend 6 month follow-up CT chest without contrast to document stability of these pulmonary nodules Venous Doppler (03/02/2025): Negative for DVT PMH: Hypoglycemia Hypotension Hyperlipidemia (?) Past Surgical History: Knee surgery as a teen Past Family History: Father-none, Renal Cancer Mother-Hypertension and mitral valve replacement Home Medication: Zertec Vitamins and Herbs (tumeric and Giner) Social History: No Alcohol No illicit Drug Use Never smoker Allergies: None Code Status: Full Code Cardiology consulted for chest pain. cc:: cc: Juan Carlos Gordon MD Review of Systems Review of Systems Narrative Review of Systems: General appearance: NO weight change, NO fatigue, NO weakness, NO fever, NO chills, NO night sweats, No cough Skin: NO rash, NO itching, NO sores, NO moles HEENT: NO Trauma, YES nausea, NO vomiting, NO visual changes, NO blurry vision, NO double vision, NO tinnitus, NO vertigo, NO ear discharge, NO rhinorrhea, NO stuffiness, NO sneezing, NO allergy, NO epistaxis. NO Hoarseness, NO sore throat, NO swollen neck. Cardiac: YES Palpitations, NO dyspnea on exertion, NO orthopnea, NO paroxysmal nocturnal dyspnea, NO edema Respiratory: YES Shortness of Breath, NO Wheezing, NO Cough, NO Sputum, NO hemoptysis GI:NO appetite, NO nausea, NO vomiting, NO dysphagia, NO changes in bowel frequency, NO stool color, NO diarrhea, NO constipation, NO hemetemesis, NO hemorrhoids, NO melena, NO hematechezia, NO abdominal pain, NO jaundice Renal: NO frequency, NO hesitancy, NO urgency, NO hematuria, NO nocturia, NO incontinence MSK: NO muscle weakness, NO gout, NO arthritis, NO muscle stiffness Neuro: NO headaches, NO tremors, NO weakness, NO paralysis, NO seizures, NO loss of consciousness, NO numbness. Hem: NO anemia, NO easy bruising/bleeding, NO petechiae, NO purpura Endo: NO heat/cold intolerance, NO excessive sweating, NO polyuria, NO polydipsia, NO polyphagia, NO thyroid problems, NO diabetes Pysch: NO mood, NO anxiety, NO depression Exam Vital Signs Temp Pulse Resp BP Pulse Ox O2 Del Method 97.1 F 76 17 94/52 L 95 Room Air 03/03/25 12:03/03/25 12:03/03/25 12:03/03/25 12:00 03/03/25 12:03/03/25 12:00 Narrative Exam General Appearance: Alert & Oriented X3, well-nourished female who is lying in bed in no acute distress HEENT: Skull symmetrical and atraumatic. Conjunctivae pink and moist. Pupils equal, round, reactive to light and accommodation (PERRL). External ear without lesion or discharge. Cardio: Normal Rate and Rhythm with S1 and S2 heart sounds. Mitral holosystolic murmur noted. No bruits on carotid auscultation. No peripheral edema or cyanosis. Lungs: Symmetric with good expansion. Chest and back non-tender. Breath sounds vesicular without crackles, wheezing or rhonchi Abdomen: Non-tender, Non-distended, Normal Reactive Bowel Sounds Neuro: Alert, cooperative, oriented to person, place, and time. Speech clear. CN grossly intact. Upper motor strength 5/5 and Lower motor strength 5/5. Sensation intact. Results Labs 03/03/25 05:02 03/03/25 05:02 Labs: Short CBC 03/03/25 Range/Units 05:02 WBC 6.3 (3.6-11.0) Thou/mm3 Hgb 11.9 L (12.0-16.0) g/dL Hct 35.3 L (36.0-46.0) % Plt Count 231 (140-440) Thou/mm3 BMP 03/03/25 05:02 Sodium 147 H Potassium 4.0 Chloride 110 H Carbon Dioxide 24.3 BUN 17 Creatinine 0.8 Glucose 98 Calcium 7.9 L Cardiac Enzymes 03/02/25 Range/Units 16:40 Troponin I 0.026 (0.0-0.045) ng/mL Liver Function 03/03/25 Range/Units 05:02 Total Bilirubin 0.4 (0.3-1.2) mg/dL AST 18 (0-34) U/L ALT 25 (10-49) U/L Alkaline Phosphatase 47 (46-116) U/L Albumin 3.3 L (3.4-4.8) gm/dL Quality Measures Quality Measures none Advance care planning discussed with:: patient Medications Home Medications and Allergies Allergies Allergy/AdvReac Type Severity Reaction Status Date / Time Penicillins Allergy Verified 03/02/25 12:38 Sulfa (Sulfonamide Allergy Verified 03/02/25 12:38 Antibiotics) Visit Medications Acetaminophen (Acetaminophen 325 Mg Tablet) 650 mg PO Q6H PRN PRN Reason: Fever >100 Stop: 04/01/25 20:03 Acetaminophen (Acetaminophen 500 Mg Tablet) 1,000 mg PO Q6H PRN PRN Reason: PAIN SCALE 1-3 (mild Stop: 04/01/25 20:03 Aspirin (Aspirin Ec 81 Mg Tabec) 81 mg PO QDAY [facility] Stop: 04/01/25 20:14 Last Admin: 03/03/25 08:05 Dose: 81 mg Furosemide (Furosemide Inj 10 Mg/Ml Vial 2 Ml) 20 mg IVP QDAY [facility] Stop: 04/02/25 08:59 Last Admin: 03/03/25 08:04 Dose: 20 mg Heparin Sodium (Porcine) (Heparin Sod Inj 5000 Unit/Ml Vial) 5,000 unit SC Q8HR [facility] Stop: 03/16/25 21:59 Last Admin: 03/03/25 14:37 Dose: Not Given Ipratropium [place] (Ipratropium Rt 0.5 Mg/ 2.5 Ml Nebu) 0.5 mg INH Q2HR PRN PRN Reason: SHORTNESS OF BREATH OR WHEEZE Stop: 04/01/25 20:03 Morphine Sulfate (Morphine Sulf Inj 10 Mg/Ml Vial) 2 mg IVP Q4H PRN PRN Reason: PAIN SCALE 7-10 (Severe Stop: 03/07/25 20:03 Ondansetron HCl (Ondansetron Inj 2 Mg/Ml Inj 2 Ml) 4 mg IVP Q6H PRN; Protocol PRN Reason: NAUSEA OR VOMITING Stop: 04/01/25 20:03 Assessment & Plan Plan Patient is a 74 years old female with a past medical history of hyperlipidemia, noncompliant, who presented with a chief chest pain and shortness of breath. #Chest pain #Hyperlipidemia Patient presented to the emergency room with the chief complaint of shortness of breath and chest pain. Patient described chest pain as originating in the upper back and moving towards chest and sternal region. 5 out of 10. Patient report described atypical chest pain that resolved upon admission troponin within normal limits. EKG noted for left bundle branch block sinus rhythm-no previous EKG on file. Given patient's presentation stable angina can not be ruled out there is no ST elevation and troponins are within normal limits and symptoms exacerbated by physical activity versus less likely secondary to DE as no troponinemia and EKG unremarkable versus PE ruled out given CTA negative versus less likely secondary to acute CHF as negative for orthopnea, paroxysmal orthopnea, negative for lower pedal edema. Diagnostics: BNP 182, troponin 0.023, troponin 0.026, EKG: Normal sinus and left bundle branch block. Lipid panel: Triglyceride ides 143, cholesterol 194, LDL 136, HDL 29 Echo: Normal LV size and function with an estimated EF of 55 to 60%. Grade 1 diastolic dysfunction. Normal RV size and function. Normal RVSP 20 to 25 mmHg. Mild aortic valve sclerosis without stenosis. Mild MAC with mild MR and mild TR. IVC normal size. No pericardial effusion ASCVD: Moderate to high intesnity statins, 8.6% risk of cardiovascular event in next 10 Years Plan -Aspirin 81 mg daily -Consider Atorvastatin 40 mg HS -Please follow up with Dr. Desir within one week of discharge for possible stress test outpatient #Hypotension Patient stated he had a past medical history of hypotension, no home medication listed. Plan: Monitor MAP above 65 #History of hypoglycemia Patient stated she has a history of hypoglycemia with low glucose readings less than 70. Fasting glucose 130 Plan -Continue to monitor #Incidental finding, noncalcified pulmonary nodules -Please follow-up in [address] chest. Health Maintenance: Disp: Pt is currently admitted to floors for further management of chest pain, awaiting echo, plan to discharge in the next 24 hours FEN: NPO-->cardiac diet DVT: on subQ heparin Code: Full Code - The patient's plan was discussed with attending Dr. Farooq Byers MD PGY1 Internal Medicine
--- NOTE | 2025-03-03 20:04 | ECHO_ITS ---
Transthoracic Echo Report Ht (in): 66 Wt (lb): 181 Exam Location: Echo Lab Status: Inpatient Machine Cage Maker: Rita Hilario Indications: Procedure Performed: BP: 126 / 57 HR: 67 Technical Quality: Technically Difficult Due To Breast Augmentation MEASUREMENTS (Male / Female) Normal Values 2D ECHO LV Diastolic Diameter PLAX 3.7 cm 4.2 - 5.9 / 3.9 - 5.3 cm LV Systolic Diameter PLAX 2.6 cm IVS Diastolic Thickness 0.9 cm 0.6 - 1.0 / 0.6 - 0.9 cm LVPW Diastolic Thickness 0.8 cm 0.6 - 1.0 / 0.6 - 0.9 cm LV Relative Wall Thickness 0.5 LVOT Diameter 2.0 cm LA Volume Index 33.1 cm?/m? 16 - 28 cm?/m? Ascending Aorta Diameter 2.9 cm DOPPLER AV Peak Velocity 132.0 cm/s AV Peak Gradient 7.0 mmHg LVOT Peak Velocity 128.0 cm/s LVOT Peak Gradient 6.6 mmHg AV Area Cont Eq pk 3.0 cm? MV Area PHT 3.4 cm? Mitral E Point Velocity 91.7 cm/s Mitral A Point Velocity 90.2 cm/s Mitral E to A Ratio 1.0 LV E' Lateral Velocity 6.6 cm/s Mitral E to LV E' Lateral Ratio 13.8 LV E' Septal Velocity 6.1 cm/s Mitral E to LV E' Septal Ratio 15.1 TR Peak Velocity 183.0 cm/s TR Peak Gradient 13.4 mmHg PV Peak Velocity 112.0 cm/s PV Peak Gradient 5.0 mmHg FINDINGS Left Ventricle Normal left ventricular size, wall thickness, systolic function with no obvious regional wall motion abnormalities. Normal left ventricular diastolic filling pattern for age. The ejection fraction is visually estimated at 55 %. Right Ventricle The right ventricle is normal in size and systolic function. The estimated right ventricular systolic pressure, 18 mmHg. Left Atrium The left atrium is normal by two-dimensional, color flow and Doppler imaging with no structural abnormalities, no thrombus formation present. Right Atrium The right atrium is normal by two-dimensional imaging, color flow and Doppler imaging with no structural abnormalities, no thrombus formation present. Atrial Septum The interatrial septum appears normal with no evidence of a shunt. Aorta The aorta is normal by two-dimensional, color flow and Doppler interrogation. Mitral Valve The mitral valve is normal by two-dimensional, color flow and Doppler interrogation. There is mild mitral valve regurgitation, stenosis or prolapse. Aortic Valve The aortic valve is trileaflet and normal by two-dimensional, color flow and Doppler interrogation. There is no significant aortic valve regurgitation. Tricuspid Valve The tricuspid valve is normal by two-dimensional, color flow and Doppler interrogation. There is mild tricuspid valve regurgitation. Pulmonic Valve The pulmonic valve is not well visualized. There is no significant pulmonic valve regurgitation. Vessels The pulmonary artery appears normal. The inferior vena cava pulmonary and hepatic veins appear normal. Pericardium The pericardium is normal by two-dimensional imaging. There is no significant pericardial effusion. CONCLUSIONS Indications: Chest Pain r/o ACS Normal LV size and function with an estimated EF of 55 to 60%. Grade 1 diastolic dysfunction. Normal RV size and function. Normal RVSP 20 to 25 mmHg. Mild aortic valve sclerosis without stenosis. Mild MAC with mild MR and mild TR. IVC normal size. No pericardial effusion. Jason Desir (Electronically Signed) Final Date: 03 March 2025 13:57
== END 2025-03-03 16:34 | disposition home or self-care (01) | DRG 313 ==
LOC: SERX 19:58 → SERHOLD 20:16 → S2NX 21:44
PROVIDERS: Nurse Practitioner Family; Nurse Practitioner Primary Care; Student in an Organized Health Care Education/Training Program; Admitting Provider Internal Medicine; Emergency Provider Emergency Medicine; PCP Physician Assistant; Visit Provider Student in an Organized Health Care Education/Training Program
DX: R07.89 Other chest pain (principal); R00.2 Palpitations; E78.5 Hyperlipidemia, unspecified; R94.31 Abnormal electrocardiogram [ECG] [EKG]; E16.2 Hypoglycemia, unspecified; I95.9 Hypotension, unspecified; Z88.0 Allergy status to penicillin; Z88.2 Allergy status to sulfonamides
CPT/HCPCS: 36415; 71046; 71275; 80053; 80061; 83735; 83880; 84100; 84443; 84484; 85025; 85610; 93005; 93306; 93971; 94664; 99285; A4649; J1644; J1938; Q9967; A9270